=== PATIENT | female | born 1980 | race Caucasian/White ===

== ENCOUNTER → 2023-09-28 14:51 | Outpatient (REF) | payer BC, SELFPAY | LOC: HWRAD 14:51 | PROVIDERS: ATTENDING PHYSICIAN Nurse Practitioner Adult Health | DX: E03.8 Other specified hypothyroidism (principal); E04.9 Nontoxic goiter, unspecified; Z13.29 Encounter for screening for other suspected endocrine disorder | CPT/HCPCS: 76536 ==

== ENCOUNTER → 2024-02-18 15:38 | Outpatient (REF) | payer BC, SELFPAY | LOC: WDC 15:38 | PROVIDERS: ATTENDING PHYSICIAN Nurse Practitioner Adult Health | DX: Z12.31 Encounter for screening mammogram for malignant neoplasm of breast (principal) | CPT/HCPCS: 77063; 77067 ==

== ENCOUNTER → 2025-02-20 09:14 | Outpatient (REF) | payer BC, SELFPAY | LOC: HWWDC 09:14 | PROVIDERS: ATTENDING PHYSICIAN Nurse Practitioner Adult Health | DX: Z12.31 Encounter for screening mammogram for malignant neoplasm of breast (principal) | CPT/HCPCS: 77063; 77067 ==